=== PATIENT | female | born 1995 | race Caucasian/White ===

== ENCOUNTER 2024-03-31 03:47 | Inpatient (IN) | payer BC ==
[2024-03-31] MEDS ORDERED: Ibuprofen 800 MG TAB PO PRN (04:52)
[2024-03-31] MEDS ORDERED: Lidocaine 1% (PF) 30 ML VIAL SC PRN (04:52)
[2024-03-31] MEDS ORDERED: Ondansetron PF 4 MG/2 ML Vial IVP PRN ×2 (04:52→07:00)
[2024-03-31] MEDS ORDERED: Misoprostol 200 MCG TAB PR PRN (04:52)
[2024-03-31] MEDS ORDERED: Carboprost 250 MCG/ML AMP IM PRN (04:52)
[2024-03-31] MEDS ORDERED: Acetaminophen 500 MG TAB PO PRN (04:52)
[2024-03-31] MEDS ORDERED: Diphenoxylate HCl/Atropine Tablet PO PRN (04:52)
[2024-03-31] MEDS ORDERED: fentaNYL 50 mcg/mL 1 mL Vial SLOW IVP PRN (04:52)
[2024-03-31] MEDS ORDERED: Promethazine HCl 25 MG/ML VIAL IM PRN (04:52)
[2024-03-31] MEDS ORDERED: hydrALAZINE 20 MG/ML VIAL SLOW IVP PRN ×2 (04:52→07:00)
[2024-03-31] MEDS ORDERED: Tranexamic Acid 1,000 MG/10 ML VIAL IVP PRN (04:52)
[2024-03-31] MEDS ORDERED: Methylergonovine 0.2 MG/ML VIAL IM PRN ×2 (04:52→07:00)
[2024-03-31] MEDS ORDERED: HYDROcodone/Acetaminophen 5/325 mg Tablet PO PRN (04:52)
[2024-03-31] MEDS ORDERED: Oxytocin 30 units/NS 500 ML 500 ML IV SCH ×2 (05:00→07:00)
[2024-03-31] MEDS ORDERED: Lactated Ringer's 1,000 ML IV SCH (05:00)
[2024-03-31 05:16] LABS: Analyzer IN Cardio CS NICU; RapidComm Collect By RN; pH (Cord, venous) 7.465 (7.250-7.350)
[2024-03-31] MEDS ORDERED: Boostrix 0.5 ML (Tdap) VIAL (>/=7 yrs of age) IM ONE (07:00)
[2024-03-31] MEDS ORDERED: Milk Of Magnesia 30 ML UDCUP PO PRN (07:00)
[2024-03-31] MEDS ORDERED: Lanolin Ointment 7 GM TUBE TOP PRN (07:00)
[2024-03-31] MEDS ORDERED: diphenhydrAMINE 25 MG CAP PO PRN (07:00)
[2024-03-31] MEDS ORDERED: Preparation H Ointment 28 GM TUBE PR PRN (07:00)
[2024-03-31] MEDS ORDERED: Misoprostol 200 MCG TAB VAG PRN (07:00)
[2024-03-31] MEDS ORDERED: Bisacodyl 10 MG SUPP PR PRN (07:00)
[2024-03-31] MEDS ORDERED: Benzocaine-Menthol 82.5 ML CAN TOP PRN (07:00)
[2024-03-31 07:21] VITALS: BMI 18.8
[2024-03-31] MEDS: Ibuprofen 800 MG TAB PO SCH (07:30)
[2024-03-31] MEDS: Prenatal Vitamin 1 TAB PO SCH (08:45)
[2024-03-31] MEDS: Docusate 100 MG CAP PO SCH (08:45)
[2024-03-31 09:58] LABS: Hematocrit 34.8 % (34.9-44.5); Hemoglobin 11.4 g/dL (12.0-15.5); Mean Corpuscular HGB CONC 32.8 g/dL (32.0-36.0); Mean Corpuscular Volume 85.5 fL (81.6-98.3); Mean Platelet Volume 10.4 fL (7.4-10.4); Platelet Count 277 10x3/uL (150-450); RBC Distribution Width 13.3 % (11.5-14.5); Red Blood Cell (RBC) Count 4.07 10x6/uL (3.90-5.03); White Blood Cell (WBC) Count 17.97 10x3/uL (3.5-10.5)
[2024-03-31 10:03] LABS: HBsAg Index 0.19 S/CO (0-0.99); Hep B Surf Ag - L&D Non-Reactive S/CO (NonReactive)
[2024-03-31 10:04] LABS: Syphilis Antibody Nonreactive (Nonreactive); Syphilis Antibody Index 0.06 S/CO (<1.00 Non-Reactive)
[2024-03-31] MEDS ORDERED: Witch Hazel 100 PAD JAR TOP PRN (12:35)
[2024-03-31] MEDS: Lidocaine 1% (PF) 30 ML VIAL ONE (13:01)
[2024-03-31] MEDS: Ferrous Sulfate 325 MG TAB PO SCH (13:01)
[2024-03-31] MEDS: fentaNYL 50 mcg/mL 1 mL Vial ONE (13:01)
[2024-04-01 07:55] VITALS: BP 99/61; TEMP 98
== END 2024-04-01 15:30 | disposition home or self-care (01) | DRG 807 ==
LOC: CSHLD/OP 03:47 → CSHLD 04:00 → CSHPP 08:20
PROVIDERS: ADMIT Obstetrics & Gynecology; ATTEND Obstetrics & Gynecology
PROC: 10E0XZZ Delivery of Products of Conception, External Approach (ICD-10-PCS; principal; 2024-03-31)
PROC: 0KQM0ZZ Repair Perineum Muscle, Open Approach (ICD-10-PCS; 2024-03-31)
DX: O62.3 Precipitate labor (principal); Z37.0 Single live birth; Z3A.39 39 weeks gestation of pregnancy; O70.1 Second degree perineal laceration during delivery
CPT/HCPCS: 36415; 82805; 85027; 86780; 86850; 86900; 86901; 87340; 99285; J3010